=== PATIENT | female | born 1950 | race Caucasian/White ===

== ENCOUNTER 2016-07-11 10:28 | Emergency (ER) | payer MEDICAID ==
[~2016-07-11] VITALS: Ht 160 cm; Wt 67.0 kg
[2016-07-11 10:33] VITALS: Ht 160 cm; Wt 67.0 kg
[2016-07-11] MEDS ORDERED: HYDR-906 PO (12:37)
[2016-07-11] MEDS ORDERED: PRED20TA PO (12:37)
--- NOTE | 2016-07-11 12:40 | ERD ---
ER Documentation Chief Complaint Date/Time DATE: 07/11/16 TIME: 12:38 Chief Complaint RT FOOT PAIN RADIATES TO KNEE AND UPPER LEG X 1 WEEK NO FALL OR INJURY HPI 65-year-old female presents the emergency room complaining of low back pain that radiates down her right leg to her right foot for approximately 1 week. Patient denies any fevers, chills, numbness, tingling, bowel or bladder incontinence. Patient denies any trauma. ROS All systems reviewed and are negative except as per history of present illness. Medications Home Meds Active Scripts Hydrocodone/Acetaminophen ([place] 5-325 Tablet) 1 Each Tablet, 1 TAB PO Q6H Y for PAIN, #7 TAB Prov:NARA MIKESON 07/11/16 Prednisone* (Prednisone*) 20 Mg Tab, 60 MG PO DAILY for 5 Days, TAB Prov:CEEPEREZ 07/11/16 FmHx Noncontributory for chief complaint Physical Exam Vitals Vital Signs Date Time Temp Pulse Resp B/P Pulse Ox O2 Delivery O2 Flow Rate FiO2 07/11/16 10:33 97.8 67 18 145/68 99 Physical Exam GENERAL: The patient is well developed and appropriate for usual state of health in no apparent distress HEENT: Pupils equal, round, and reactive to light. EOMI. There is no scleral icterus. NECK: C-spine is soft and supple, there is no meningismus. There is no cervical lymphadenopathy. LUNGS: Clear to auscultation bilaterally. There are no rales, wheezes or rhonchi. HEART: Regular rate and rhythm, no murmurs, clicks, rubs or gallops. ABDOMEN: Soft, non-tender, non-distended. There are bowel sounds in all four quadrants. No rebound or guarding. EXTREMITIES: There is no peripheral cyanosis or edema. No focal swelling or erythema. Back: No midline spinal tenderness infection or evidence of other high-risk concerns NEURO: The patient moves all four extremities with 5/5 strength. Cranial nerves II - XII are intact. Normal gait. Alert and oriented SKIN: There is no apparent rash or petechiae. HEME/LYMPHATIC: There is no evidence of excessive bruising or lymphedema. PSYCHIATRIC: The patient does not appear anxious or depressed. Procedures/MDM Patient was taken to a room, seen and examined Medical decision making: Patient presents today with atraumatic back pain. Although infection, malignancy, GI, , and vascular causes have been considered in this patient, the patient's clinical presentation is most consistent with a musculoskeletal cause. There is neither evidence of any acute neurologic damage, nor of loss of function and thus, advanced imaging studies have been deferred. Patient will be treated conservatively with appropriate pain control with precautionary discharge instructions provided. Departure Diagnosis: Primary Impression: Sciatica Condition: Stable Patient Instructions: Understanding Sciatica Additional Instructions: Please see your doctor if not better in 3-5 days Return for any increased problems or concerns PEREZ MIKE Jul 11, 2016 12:40
== END 2016-07-11 13:43 | disposition home or self-care (01) ==
LOC: FTE 10:28
DX: M54.31 Sciatica, right side (principal); I10 Essential (primary) hypertension
CPT/HCPCS: 99284

== ENCOUNTER 2017-07-25 12:29 | Emergency (ER) | END 2017-07-25 13:19 | disposition home or self-care (01) ==